=== PATIENT | female | born 1980 | race Caucasian/White ===

== ENCOUNTER → 2019-09-28 12:53 | Outpatient (BNVA) | payer OTHER, SELFPAY | PROVIDERS: Family Provider Family Medicine; PCP Family Medicine; Referring Provider Nurse Practitioner Family; Visit Provider Otolaryngology | DX: H93.92 Unspecified disorder of left ear (principal); H93.13 Tinnitus, bilateral; H69.82 Other specified disorders of Eustachian tube, left ear; J34.2 Deviated nasal septum | CPT/HCPCS: 99203; 99214 ==

== ENCOUNTER → 2019-10-05 09:11 | Outpatient (BNVA) | payer OTHER, SELFPAY | PROVIDERS: Family Provider Family Medicine; PCP Family Medicine; Visit Provider Otolaryngology | DX: H93.92 Unspecified disorder of left ear (principal); H69.82 Other specified disorders of Eustachian tube, left ear; H93.13 Tinnitus, bilateral; J34.2 Deviated nasal septum; K21.9 Gastro-esophageal reflux disease without esophagitis | CPT/HCPCS: 99213; 99214 ==

== ENCOUNTER 2019-10-07 08:10 | Outpatient (REF) | payer OTHER, SELFPAY ==
[2019-10-07 11:09] LABS: Estmated Average Glucose 134; Hemoglobin A1C 6.3 % (4.0-6.0)
[2019-10-07 13:44] LABS: Chol HDL Ratio 2.93 mg/dL (0.0-4.40); Cholesterol 167 mg/dL (0-200); Glucose 91 mg/dL (65-115); HDL Cholesterol 57 mg/dL (60-100); LDL Cholesterol Calculated 73 mg/dL (50-129); LDL HDL Ratio 1.28 RATIO (0.00-3.22); Triglycerides 187 mg/dL (0-150)
== END 2019-10-07 08:11 | disposition home or self-care (01) ==
LOC: LAB 08:10
PROVIDERS: Family Provider Family Medicine; PCP Family Medicine; Visit Provider Dermatology
DX: Z01.89 Encounter for other specified special examinations (principal)
CPT/HCPCS: 80061; 82947; 83036

== ENCOUNTER 2019-10-13 06:35 | Day surgery (SDC) | payer OTHER, SELFPAY ==
[2019-10-12 10:44] VITALS: BMI 34.8
[2019-10-13] VITALS (7 sets, daily range): BP systolic 106–140; BP diastolic 67–86; PULSE 63–80; RESP 16–20; TEMP 36.2–37.3; O2SAT 95–100
[2019-10-13] MEDS: sodium chloride 0.9% 1,000 ML 30 ML IV (07:00)
--- NOTE | 2019-10-13 07:01 | PM.HPUD ---
H&P update H&P Update: DATE OF SURGERY/PROCEDURE: 10/13/19 DATE H&P PERFORMED: 10/05/19 H&P UPDATE INFORMATION: H&P completed within last 30 days and No changes to prior documentation PREOP DIAGNOSIS: Chronic eustachian tube dysfunction PLANNED PROCEDURE: Operation Date: 10/13/19 08:20 Proposed Procedures p Myringotomy and Tubes Bilateral Myringotomy and Tubes 71436 H69.80(Bilateral) - Chay Wu MD Full H&P Medications/Allergies: Current Medications: Current Medications Generic Name Dose Route Start Last Admin Trade Name Freq PRN Reason Stop Dose Admin Sodium Chloride 1,000 mls @ 30 ml s/hr 10/13/19 06:45 10/13/19 07:00 Sodium Chloride 0.9% IV 10/14/19 06:44 30 mls/hr .Q24H THANIA Administration Perinent History: Medical/Surgical History: Medical History (Updated 09/28/19 @ 13:16 by Chay Wu MD) Chronic eustachian tube dysfunction (Acute) Deviated septum (Acute) GERD (gastroesophageal reflux disease) (Acute) Tinnitus (Acute) Family History: Family History (Updated 09/28/19 @ 13:08 by Janee Summers LPN) Father Cancer Diabetes Hypertension Social History: Social History Smoking and tobacco status: former smoker Alcohol intake: current Alcohol intake frequency: holidays/special occasions only History of recent travel: No
[2019-10-13 07:05] LABS: Glucose Point of Care 121 mg/dL (70-110)
--- NOTE | 2019-10-13 07:35 | ANES.PREANE2 ---
Pre-Anesthetic Assessment Pre-Anesthetic Assessment: Height/Weight: Height 1.78 m Weight 110.223 kg Temp Pulse Resp BP Pulse Ox 97.1 F L 75 18 140/86 97 10/13/19 06:58 10/13/19 06:58 10/13/19 06:58 10/13/19 06:58 10/13/19 06:58 Preop Diagnosis: Chronic eustachian tube dysfunction Proposed Procedure: Operation Date: 10/13/19 08:20 Proposed Procedures p Myringotomy and Tubes Bilateral Myringotomy and Tubes 22353 H69.80(Bilateral) - Chay Wu MD Last intake: Intake Last Liquid Date 10/12/19 Last Liquid Time 22:00 Last Solid Date 10/12/19 Last Solid Time 20:00 Social: Packs per day: 1/2 Pack years: 12 Comment: quit 1y Exam: Pre-Anes Outpt Exam: alert, oriented x 3, clear to auscultation bilaterally and regular rate & rhythm Airway: Submandibular: WNL Cervical ROM: WNL MP: 1 CV/HEM: CV/HEM: HTN Comments: 1 year GI: GI: GERD Comments: well controlled Metabolic: Metabolic: DM, Hyperlipidemia and Morbid obesity Comments: rx'd x 3y Neuropsych: Neuropsych: [place] Comments: migrane last months Anesthetic Plan: ASA status: 2 Anesthesia: General Meds/Allergies Current Medications: Current Medications Generic Name Dose Route Start Last Admin Trade Name Freq PRN Reason Stop Dose Admin Sodium Chloride 1,000 mls @ 30 ml s/hr 10/13/19 06:45 10/13/19 07:00 Sodium Chloride 0.9% IV 10/14/19 06:44 30 mls/hr .Q24H THANIA Administration PFSH Anesthesia PFSH: Social History Smoking and tobacco status: former smoker Alcohol intake: current Alcohol intake frequency: holidays/special occasions only History of recent travel: No Data Anesthesia Other Labs: Laboratory Results - last 48 hr 10/13/19 07:02 POC Glucose 121 Cardiac Studies: No Data to Display
--- NOTE | 2019-10-13 07:46 | PM.OP ---
Operative Report Date of procedure: October 13, 2019 Pre-op Diagnosis: Chronic eustachian tube dysfunction Post-op diagnosis: same Procedure Done: Bilateral myringotomy and T-tube placement, binocular microscope Pathology: none sent Surgeon: Chay Wu Anesthesia: General Complications: none Findings: Retracted tympanic membrane left greater than right Condition: stable Disposition: PACU Procedure: The patient was taken to the operating room and under satisfactory general mask anesthesia the right ear was examined using the binocular microscope. Cerumen was removed from the external auditory canal. A radial incision was made in the anterior inferior quadrant of the tympanic membrane and a T-tube was placed. An identical procedure and findings were performed on the opposite side. No complications occurred. The patient was taken to the recovery room where they were observed. During the observation period postoperative care instructions and counseling including detailed written and verbal instructions given to the caregiver. Once the patient met discharge criteria and once all parties verbalized understanding of all instructions the patient was discharged in satisfactory and stable condition.
[2019-10-13] MEDS: ofloxacin 0.3% otic 5 mL Btl 3 DROP EAR-BOTH (07:49)
[2019-10-13] MEDS: HYDROcodone-acetaminophen 5-325 mg Tablet 1 TAB PO (08:32)
== END 2019-10-13 09:00 | disposition home or self-care (01) ==
PROVIDERS: Family Provider Family Medicine; PCP Family Medicine; Visit Provider Otolaryngology
PROC: (CPT 69420; principal; 2019-10-13 08:10)
DX: H69.93 Unspecified Eustachian tube disorder, bilateral (principal); Z87.891 Personal history of nicotine dependence; E66.01 Morbid (severe) obesity due to excess calories; Z68.34 Body mass index [BMI] 34.0-34.9, adult; E78.5 Hyperlipidemia, unspecified; E11.9 Type 2 diabetes mellitus without complications; K21.9 Gastro-esophageal reflux disease without esophagitis; Z82.49 Family history of ischemic heart disease and other diseases of the circulatory system; Z83.3 Family history of diabetes mellitus; Z79.84 Long term (current) use of oral hypoglycemic drugs; J34.2 Deviated nasal septum; H93.19 Tinnitus, unspecified ear
CPT/HCPCS: 69436; 12345; 36416; 82962; J3010; J7030

== ENCOUNTER → 2019-10-24 08:59 | Outpatient (BNVA) | payer OTHER, SELFPAY | PROVIDERS: Family Provider Family Medicine; PCP Family Medicine; Visit Provider Otolaryngology | DX: H69.83 Other specified disorders of Eustachian tube, bilateral (principal); H93.13 Tinnitus, bilateral; J34.2 Deviated nasal septum; K21.9 Gastro-esophageal reflux disease without esophagitis | CPT/HCPCS: 99213; 99214 ==

== ENCOUNTER → 2019-11-07 11:05 | Outpatient (BNVA) | payer OTHER, SELFPAY | PROVIDERS: Family Provider Family Medicine; PCP Family Medicine; Visit Provider Otolaryngology | DX: H69.83 Other specified disorders of Eustachian tube, bilateral (principal); H93.13 Tinnitus, bilateral; J34.2 Deviated nasal septum; K21.9 Gastro-esophageal reflux disease without esophagitis | CPT/HCPCS: 99213; 99214 ==

== ENCOUNTER 2021-04-05 10:50 | Outpatient (CLI) | payer OTHER, SELFPAY ==
[2021-04-05 11:55] VITALS: BP 145/93; PULSE 87; RESP 16; TEMP 36.7; O2SAT 97
[2021-04-05 12:11] VITALS: BP 173/104; PULSE 81; RESP 16; TEMP 36.8; O2SAT 98
[2021-04-05 13:05] VITALS: BP 139/94; PULSE 83; RESP 16; TEMP 36.9; O2SAT 94
== END 2021-04-05 15:32 | disposition home or self-care (01) ==
LOC: OPS 10:53
PROVIDERS: PCP Family Medicine; Visit Provider Nurse Practitioner Family
DX: U07.1 COVID-19 (principal)
CPT/HCPCS: 96365

== ENCOUNTER → 2022-08-12 10:50 | Outpatient (BNVA) | payer OTHER, SELFPAY | PROVIDERS: PCP Clinical Nurse Specialist Adult Health; Visit Provider Registered Nurse Neonatal Intensive Care | DX: R50.9 Fever, unspecified (principal); B34.9 Viral infection, unspecified | CPT/HCPCS: 87400 ==

== ENCOUNTER → 2022-11-18 09:23 | Outpatient (BNVA) | payer OTHER, SELFPAY | PROVIDERS: PCP Clinical Nurse Specialist Adult Health; Visit Provider Clinical Nurse Specialist Adult Health | DX: E11.9 Type 2 diabetes mellitus without complications (principal); I10 Essential (primary) hypertension; E78.00 Pure hypercholesterolemia, unspecified | CPT/HCPCS: 80053; 80061; 83036; 84443; 85025 ==

== ENCOUNTER 2023-01-29 15:59 | Emergency (ER) | payer OTHER, SELFPAY ==
[2023-01-29 16:23] VITALS: BP 148/100; PULSE 92; RESP 18; TEMP 36.7; O2SAT 97
--- NOTE | 2023-01-29 16:45 | ED_ITS ---
HPI - Back Pain/Injury General: Chief Complaint: Back Pain/Injury Stated Complaint: low back pain Time Seen by Provider: 01/29/23 16:31 History of Present Illness: Patient is a 42-year-old female comes to the ED with lower back pain. Back pain started approximately 1 week ago. Patient says she was getting ready for work and reached into a cabinet to grab something and felt a twinge in her lower back. Since then she has been having 9 out of 10 pain in her lower back. Low back pain is bilateral but she does have some pain that radiates down into right lower leg. Pain worsens with certain movements. Denies any cauda equina symptoms. Patient's saw urgent care clinic about 5 days ago and they gave her a shot of a steroid and discharged home on a muscle relaxer. Patient says her pain is not improved. She denies any cauda equina symptoms. Associated symptoms: Deny abdominal pain, chills, dysuria, fatigue, fever(s), hematuria, nausea or vomiting Review of Systems Const: Denies: fever(s), chills or fatigue Eyes: Denies: change in vision or eye discomfort ENMT: Denies: throat pain, odynophagia, nasal discharge or nasal congestion Card: Denies: chest pain, palpitations, edema, swelling of feet/ankles, dyspnea on exertion or orthopnea Resp: Denies: dyspnea, productive cough or non-productive cough GI: Denies: abdominal pain, nausea, vomiting, diarrhea, constipation or hematochezia : Denies: flank pain, dysuria or hematuria Musc: Reports: back pain; Denies: neck pain or extremity swelling Skin/Breast: Denies: rash or new lesions Neuro: Denies: headache(s), numbness in extremities or weakness in extremities PFS ED PFSH: Medical History Chronic eustachian tube dysfunction Deviated septum Diabetes GERD (gastroesophageal reflux disease) Hypercholesteremia Hypertension Tinnitus Surgical History History of delivery History of ear surgery 5 BMT placements History of hysterectomy Family History Father Cancer Diabetes Hypertension Social History Smoking and tobacco status: current every day smoker Alcohol intake: current Alcohol intake frequency: holidays/special occasions only Substance/Drug Use: never Physical Exam Const: COMMON NORMALS: patient oriented x3 and alert GENERAL APPEARANCE: cooperative HENMT: COMMON NORMALS: normocephalic HEAD & SCALP: normocephalic MOUTH: Normal oral and palatal mucosa present THROAT: posterior oropharynx normal and uvula midline Neck/C-Spine: COMMON NORMALS: supple GENERAL: Yes normal visual inspection Resp: COMMON NORMALS: normal respiratory effort, No retractions, No use of accessory muscles and clear to auscultation bilaterally AUSCULTATION: clear to auscultation bilaterally Cardio: COMMON NORMALS: regular rate, regular rhythm, S1 normal heart sound present, S2 normal heart sound present, No gallops present (Cardio), No clicks present (Cardio), No murmurs present (Cardio) and Peripheral pulses 2+ throughout RATE: regular rate RHYTHM: regular rhythm HEART SOUNDS: S1 normal heart sound present and S2 normal heart sound present PERIPHERAL PULSES: Peripheral pulses 2+ throughout GI: COMMON NORMALS: Normal to inspection, nondistended, normoactive bowel sounds present, Soft to palpation, non-tender and no masses PALPATION: Yes Soft to palpation : COMMON NORMALS: Yes no CVA tenderness BLADDER/KIDNEY EXAM: Yes no CVA tenderness Back/Pelvis: COMMON NORMALS: no CVA tenderness LUMBAR SPINE/LOWER BACK: Yes pain with ROM and Yes paraspinal muscle tenderness Lumbar paraspinal muscle tenderness: bilateral Bilateral lumbar paraspinal muscle tenderness: L4 and L5 Extremity: COMMON NORMALS: normal to inspection Neuro: COMMON NORMALS: patient oriented x3 SENSORIUM/ORIENTATION: Yes alert GAIT: Yes Normal gait present Skin: GENERAL SKIN EXAM: dry skin Course Vital Signs: Vital signs: Vital Signs Temperature 98.1 F 01/29/23 16:23 Pulse Rate 92 01/29/23 16:23 Respiratory Rate 18 01/29/23 16:23 Blood Pressure 148/100 01/29/23 16:23 Pulse Oximetry 97 01/29/23 16:23 Oxygen Delivery Me thod Room Air 01/29/23 16:23 MDM - Back Pain/Injury Medical Decision Making Patient is a 42-year-old female comes to the ED with lower back pain. Back pain started approximately 1 week ago. Patient says she was getting ready for work and reached into a cabinet to grab something and felt a twinge in her lower back. Since then she has been having 9 out of 10 pain in her lower back. Low back pain is bilateral but she does have some pain that radiates down into right lower leg. Pain worsens with certain movements. Denies any cauda equina symptoms. Patient's saw urgent care clinic about 5 days ago and they gave her a shot of a steroid and discharged home on a muscle relaxer. Patient says her pain is not improved. She denies any cauda equina symptoms. Vitals are stable. Patient appears nontoxic and is sitting on exam chair comfortably when I enter the room. She has some lumbar paraspinal muscle tenderness bilaterally from L4- L5. Rest of her exam is benign. Patient was given a dose of Toradol, muscle relaxer and Decadron here in the ED. Patient was diagnosed with lumbar radiculopathy and was stable for discharge home. She was sent home with a prescription for an NSAID, muscle relaxer and steroid. Told to follow-up with her PCP within the next week for reevaluation. Return to ED precautions given. Patient understood and agreed with plan. Discharge Plan Discharge Patient Disposition: Home Clinical Impression: Lumbar radiculopathy Condition: Stable Prescriptions: New cyclobenzaprine 10 mg tablet 10 mg PO BID PRN (Reason: muscle spasm) Qty: 20 0RF celecoxib 100 mg capsule 100 mg PO BID Qty: 30 0RF Medrol (Louis) 4 mg tablets,dose pack See Rx Instructions .ROUTE .COMPLEX Qty: 21 0RF Rx Instructions: orally per package directions No Action cyclobenzaprine 5 mg tablet 5 mg PO TID PRN (Reason: muscle pain) Qty: 20 0RF mupirocin 2 % ointment 1 applic topical BID Qty: 15 0RF hydrochlorothiazide 25 mg tablet 25 mg PO DAILY Qty: 90 3RF betamethasone valerate 0.1 % ointment 1 applic topical BID PRN (Reason: skin irritation) Qty: 15 0RF Rx Instructions: may use for a maximum of 2 weeks losartan 50 mg tablet 50 mg PO DAILY Qty: 30 2RF omeprazole 40 mg capsule,delayed release(DR/EC) 40 mg PO BID Qty: 60 1RF metformin 500 mg tablet 500 mg PO BID Qty: 180 3RF Discharge Orders: Discharge ED (Routine); Ordered 01/29/23 Ordered By: Efe Zuluaga Referrals: Doug Espinoza LOSS CONTROL REPRESENTATIVE [Primary Care Provider] - Discharge Diet: Regular Discharge Activity: Increase activity as tolerated and Limit activity as instructed Patient Instructions: Lumbar Radiculopathy (ED) Activity Restrictions/Additional Instructions: Follow-up with medical provider as directed. Take medications as prescribed. Return to the ER or your medical provider if condition worsens. Please read and understand discharge instructions. Thank you for choosing [facility] for your healthcare needs today. Please realize this is an emergency room and that we are providing you with a medical screening exam and this may not be complete and all inclusive of all the testing and or work up that you may need to determine your ailment or severity of your illness. It is very important that you follow up as instructed or that you return to the Emergency Department should you have concerns or if your condition changes or worsens in any way. Stand Alone Forms: Work/School Release Coding Level of Care Code ED Interpreter Deaf for Nirali Cruz
[2023-01-29] MEDS: ketorolac 60 mg/2 mL INJ IM (17:07)
[2023-01-29] MEDS: orphenadrine 30 mg/mL Inj 2 mL 60 MG IM (17:07)
[2023-01-29] MEDS: dexamethasone 10 mg/mL INJ IM (17:08)
== END 2023-01-29 17:13 | disposition home or self-care (01) ==
PROVIDERS: Emergency Provider Physician Assistant; PCP Clinical Nurse Specialist Adult Health
DX: M54.16 Radiculopathy, lumbar region (principal); Z79.84 Long term (current) use of oral hypoglycemic drugs; E11.9 Type 2 diabetes mellitus without complications; I10 Essential (primary) hypertension; F17.210 Nicotine dependence, cigarettes, uncomplicated
CPT/HCPCS: 96372; 99284; J1100; J1885; J2360

== ENCOUNTER 2023-02-13 15:07 | Outpatient (CLI) | payer OTHER, SELFPAY ==
--- NOTE | 2023-02-13 15:23 | XR_ITS ---
WS: [id number] XR lumbar spine 2-3V* [id number] REASON FOR EXAM: lumbar radiculopathy FINDINGS: Mild rotatory scoliosis convex left. Normal lordosis. No significant vertebral body abnormality. Mild narrowing of the intervertebral disc spaces with small vertebral body osteophytes L1-L5. Signifi cant narrowing of the L5-S1 disc space with vacuum phenomena. Endplate sclerosis and anterior osteoph ytosis. No spondylolysis and no significant spondylolisthesis. Minimal degenerative change in the facet joints L3-S1. XR/XR lumbar spine 2-3V* [id number] IMPRESSION: Degenerative spondylosis of the lumbar spine as above.
== END 2023-02-13 15:08 | disposition home or self-care (01) ==
LOC: RAD 15:12
PROVIDERS: PCP Clinical Nurse Specialist Adult Health; Visit Provider Clinical Nurse Specialist Adult Health
DX: M54.16 Radiculopathy, lumbar region (principal); M47.817 Spondylosis without myelopathy or radiculopathy, lumbosacral region
CPT/HCPCS: 72100

== ENCOUNTER 2023-06-11 10:12 | Outpatient (CLI) | payer OTHER, SELFPAY ==
--- NOTE | 2023-06-11 10:15 | MM_ITS ---
WS: [id number] SCREENING DIGITAL TOMOSYNTHESIS MAMMOGRAM WITH CAD HISTORY: SCREENING COMPARISON: None available. Bilateral CC and MLO with tomosynthesis views submitted. Synthetic mammography reviewed. Computer aid ed detection analyzed. Breast composition: The breasts are almost entirely fatty. No suspicious masses, microcalcifications or architectural distortion. IMPRESSION: MM/[place] [id number] BI-RADS: 1-Negative FOLLOW UP: 1 Year Follow-up
== END 2023-06-11 10:13 | disposition home or self-care (01) ==
LOC: MOBLMAM 10:15
PROVIDERS: PCP Clinical Nurse Specialist Adult Health; Visit Provider Clinical Nurse Specialist Adult Health
DX: Z12.31 Encounter for screening mammogram for malignant neoplasm of breast (principal)
CPT/HCPCS: 77063; 77067

== ENCOUNTER → 2023-09-11 07:37 | Outpatient (BNVA) | payer OTHER, SELFPAY | PROVIDERS: PCP Clinical Nurse Specialist Adult Health; Visit Provider Clinical Nurse Specialist Adult Health | DX: E11.9 Type 2 diabetes mellitus without complications (principal) | CPT/HCPCS: 80053; 80061; 83036; 85025 ==

== ENCOUNTER → 2023-12-16 07:26 | Outpatient (BNVA) | payer OTHER, SELFPAY | PROVIDERS: PCP Clinical Nurse Specialist Adult Health; Visit Provider Clinical Nurse Specialist Adult Health | DX: E11.8 Type 2 diabetes mellitus with unspecified complications (principal) | CPT/HCPCS: 80053; 83036; 85025 ==

== ENCOUNTER 2024-03-16 08:12 | Outpatient (CLI) | payer OTHER, SELFPAY ==
--- NOTE | 2024-03-16 08:18 | XRR_ITS ---
PROCEDURE INFORMATION: Exam: XR Right Foot Exam date and time: 03/16/2024 8:22 AM Age: 43 years old Clinical indication: Right; Patient HX: No specific injury, pain in lateral aspect of foot for 3-4 weeks; Additional info: Right lateral foot pain TECHNIQUE: Imaging protocol: Radiologic exam of the right foot. Views: 3 or more views. COMPARISON: No relevant prior studies available. FINDINGS: Bones/joints: No fracture or dislocation is appreciated. Joint spaces are relatively well preserved. Small subchondral cyst is noted involving the 1st metatarsal head. Bony mineralization is otherwise normal. There is a small plantar calcaneal spur. Soft tissues: There is dorsal soft tissue swelling. XR/XR foot RT min 3V* [id number] IMPRESSION: 1. Dorsal soft tissue swelling.
== END 2024-03-16 08:13 | disposition home or self-care (01) ==
PROVIDERS: PCP Clinical Nurse Specialist Adult Health; Visit Provider Clinical Nurse Specialist Adult Health
DX: E11.8 Type 2 diabetes mellitus with unspecified complications (principal); M79.671 Pain in right foot; M85.671 Other cyst of bone, right ankle and foot; M77.31 Calcaneal spur, right foot; M79.89 Other specified soft tissue disorders
CPT/HCPCS: 73630; 80053; 83036; 85025; 85651; 86140; 86431

== ENCOUNTER 2024-06-22 12:17 | Outpatient (CLI) | payer OTHER, SELFPAY ==
--- NOTE | 2024-06-22 12:20 | MM_ITS ---
WS: [id number] BILATERAL 3D TOMOSYNTHESIS DIGITAL SCREENING MAMMOGRAPHY WITH CAD CLINICAL INFORMATION: SCREENING HISTORY: Screening mammogram. No current complaints. COMPARISON: 2022 TECHNIQUE: Bilateral CC and MLO views. FINDINGS: Scattered fibroglandular densities bilaterally. No suspicious focal mass, asymmetry, calcifications, or architectural distortion. No evidence of malignancy. MM/MM scr BI tomosynthesis [id number] IMPRESSION: DENSITY: There are scattered areas of fibroglandular density. BI-RADS: 1 - Negative. FOLLOW UP: 1 Year Follow-up Recommend return to annual screening mammography.
== END 2024-06-22 12:18 | disposition home or self-care (01) ==
LOC: MOBLMAM 12:19
PROVIDERS: PCP Clinical Nurse Specialist Adult Health; Visit Provider Clinical Nurse Specialist Adult Health
DX: Z12.31 Encounter for screening mammogram for malignant neoplasm of breast (principal); R92.323 Mammographic fibroglandular density, bilateral breasts
CPT/HCPCS: 77063; 77067

== ENCOUNTER → 2024-10-07 10:42 | Outpatient (BNVA) | payer OTHER, SELFPAY | PROVIDERS: PCP Clinical Nurse Specialist Adult Health; Referring Provider Family Medicine; Visit Provider Internal Medicine | DX: R07.9 Chest pain, unspecified (principal); R06.02 Shortness of breath | CPT/HCPCS: 93005 ==